=== PATIENT | female | born 2000 | race Caucasian/White ===

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

== ENCOUNTER 2019-01-09 02:11 | Emergency (ER) | payer OTHER ==
[2019-01-09] MEDS ORDERED: ONDANSETRON HCL 4 MG/2 ML VIAL ONE (02:44)
[2019-01-09] MEDS ORDERED: MORPHINE SULFATE 4 MG/1ML SYG ONE (02:45)
[2019-01-09 02:51] LABS: APPEARANCE,URINE Turbid (CLEAR); BILIRUBIN,URINE Negative (NEGATIVE); COLOR,URINE Yellow (YELLOW); GLUCOSE, URINE (UA) 500 mg/dL (NEGATIVE); KETONES,URINE Negative (NEGATIVE); LEUKOCYTE ESTERASE ,URINE Negative (NEGATIVE); NITRATE,URINE Negative (NEGATIVE); OCCULT BLOOD,URINE Negative (NEGATIVE); PH,URINE 8.5 (5.0-8.0); PROTEIN,URINE Negative (NEGATIVE)
[2019-01-09 02:52] LABS: EOSINOPHILS % (AUTO) 3.4 % (0.0-8.0); LYMPHOCYTES % (AUTO) 29.1 % (21.0-51.0); MEAN CORPUSCULAR HEMOGLOBIN 29.5 pg (27.0-33.0); MEAN CORPUSCULAR HGB CONC 33.4 g/dL (32.0-36.0); MEAN CORPUSCULAR VOLUME 88.3 fL (80-100); MONOCYTES % (AUTO) 8.3 % (3.0-13.0); NEUTROPHILS % (AUTO) 58.2 % (40.0-77.0); PLATELET COUNT (AUTO) 335 K/uL (130-400); RED BLOOD CELL COUNT(AUTO) 4.76 MIL/uL (4.00-5.50); RED CELL DISTRIBUTION WIDTH 13.3 % (11.0-15.5); WHITE BLOOD COUNT (AUTO) 11.8 K/uL (4.8-10.8)
[2019-01-09 02:52] LABS: HCG,QUAL RESULT NEGATIVE (NEGATIVE)
[2019-01-09 03:03] LABS: CREATININE 0.8 mg/dL (0.5-1.5)
[2019-01-09] MEDS ORDERED: METOCLOPRAMIDE 10 MG/2 ML VIAL ONE (03:03)
[2019-01-09 03:07] LABS: ALBUMIN 3.8 g/dL (3.5-5.0); BILIRUBIN,TOTAL 0.2 mg/dL (0.2-1.0); TOTAL PROTEIN, SERUM 7.5 g/dL (6.0-8.3)
[2019-01-09 03:10] LABS: AMPHET/METH SCREEN,URINE NEGATIVE (NEGATIVE); BARBITURATE SCREEN, URINE NEGATIVE (NEGATIVE); BENZODIAZEPINES SCREEN,URINE POSITIVE (NEGATIVE); CANNABINOID SCREEN,URINE POSITIVE (NEGATIVE); COCAINE SCREEN,URINE POSITIVE (NEGATIVE); OPIATE SCREEN,URINE NEGATIVE (NEGATIVE); PHENCYCLIDINE SCREEN,URINE NEGATIVE (NEGATIVE)
[2019-01-09 03:14] LABS: BACTERIA,URINE Few /HPF (None Seen); RBC,URINE 0-1 /HPF (0-1); WBC,URINE 0-1 /HPF (0-1)
[2019-01-09 03:15] LABS: AMORPHOUS SEDIMENT,UR Many /LPF (None Seen)
== END 2019-01-09 05:32 | disposition home or self-care (01) ==
LOC: EDH 02:11
DX: K80.20 Calculus of gallbladder without cholecystitis without obstruction (principal); E11.9 Type 2 diabetes mellitus without complications; Z88.8 Allergy status to other drugs, medicaments and biological substances; Z72.0 Tobacco use
CPT/HCPCS: 36415; 76705; 80053; 80305; 81001; 81025; 83690; 85025; 96374; 96375; 99284; J2270; J2405; J2765

== ENCOUNTER 2023-01-04 20:23 | Emergency (ER) | payer OTHER ==
[~2023-01-04] VITALS: Ht 165.1 cm; Wt 64.4 kg
[2023-01-04 21:08] LABS: BASOPHILS % (AUTO) 0.4 % (0.0-5.0); HEMATOCRIT 42.9 % (36-48); LYMPHOCYTES % (AUTO) 11.5 % (21.0-51.0); MEAN CORPUSCULAR HEMOGLOBIN 27.7 pg (27.0-33.0); MEAN CORPUSCULAR HGB CONC 32.6 g/dL (32.0-36.0); MONOCYTES % (AUTO) 6.5 % (3.0-13.0); NEUTROPHILS % (AUTO) 80.1 % (40.0-77.0); PLATELET COUNT (AUTO) 331 K/uL (130-400); RED BLOOD CELL COUNT(AUTO) 5.05 MIL/uL (4.00-5.50); RED CELL DISTRIBUTION WIDTH 14.2 % (11.0-15.5); WHITE BLOOD COUNT (AUTO) 16.7 K/uL (4.8-10.8)
[2023-01-04 21:26] LABS: ALBUMIN 3.9 g/dL (3.5-5.0); POTASSIUM 4.4 mmol/L (3.5-5.1); TOTAL PROTEIN, SERUM 7.3 g/dL (6.0-8.3)
[2023-01-04] MEDS ORDERED: LEVETIRACETAM 500 MG/5 ML SD VIAL IV SCH (21:30)
[2023-01-04] MEDS ORDERED: INSULIN HUMULIN R 100 UNIT/ML 3ML IV STA (21:51)
[2023-01-04] MEDS ORDERED: 0.9%NACL 1000ML 1,000 ML IV ONE (22:00)
[2023-01-04] MEDS ORDERED: ACETAMINOPHEN 500 MG TABLET ONE (22:04)
[2023-01-04] MEDS ORDERED: ACETAMINOPHEN 500 MG TABLET PO ONE (22:30)
[2023-01-04 22:40] LABS: APPEARANCE,URINE CLEAR (CLEAR); BILIRUBIN,URINE NEGATIVE (NEGATIVE); COLOR,URINE LIGHT-YELLOW (YELLOW); GLUCOSE, URINE (UA) >=1000 mg/dL (NEGATIVE); KETONES,URINE NEGATIVE (NEGATIVE); LEUKOCYTE ESTERASE ,URINE NEGATIVE Leu/uL (NEGATIVE); NITRATE,URINE NEGATIVE (NEGATIVE); PROTEIN,URINE NEGATIVE (NEGATIVE); UROBILINOGEN,URINE 0.2 mg/dL (0.2-1.0)
[2023-01-04 22:45] LABS: RBC,URINE 0-1 /HPF (0-1); SQUAMOUS EPITHELIAL CELL,UR FEW /HPF (0-2)
[2023-01-05] MEDS ORDERED: 0.9%NACL 1000ML 1,000 ML IV ONE (01:30)
[2023-01-05] MEDS ORDERED: LEVE-43 PO (02:40)
[2023-01-05] MEDS ORDERED: METF-444 PO (02:40)
[2023-01-05 02:56] VITALS: BP 122/64
== END 2023-01-05 03:06 | disposition home or self-care (01) ==
LOC: EDH 20:23
DX: G40.909 Epilepsy, unspecified, not intractable, without status epilepticus (principal); E11.9 Type 2 diabetes mellitus without complications; F41.9 Anxiety disorder, unspecified; F32.A Depression, unspecified
CPT/HCPCS: 99285; 96374; 70450; 96361 ×2; 96375; 80053; 84703; 85025; 87040 ×2; 82948; 83605 ×2; 82010; 81001; 36415 ×2; J1815; J1953; J7030 ×2

== ENCOUNTER 2024-06-26 10:40 | Emergency (ER) | payer OTHER ==
[~2024-06-26] VITALS: Ht 165.1 cm; Wt 113.4 kg
[~2024-06-26 10:40] MED LIST: LEVE-43 PO; METF-444 PO
[2024-06-26 11:22] LABS: BASOPHILS # (AUTO) 0.04 K/uL (0.00-0.20); BASOPHILS % (AUTO) 0.4 % (0.0-5.0); EOSINOPHILS % (AUTO) 2.1 % (0.0-8.0); HEMATOCRIT 33.5 % (36-48); IMMATURE GRANULOCYTE ABSOLUTE 0.03 K/uL (0-1); LYMPHOCYTES # (AUTO) 1.4 K/uL (1.0-4.8); LYMPHOCYTES % (AUTO) 14.6 % (21.0-51.0); MEAN CORPUSCULAR HEMOGLOBIN 21.4 pg (27.0-33.0); MEAN CORPUSCULAR HGB CONC 30.4 g/dL (32.0-36.0); MEAN CORPUSCULAR VOLUME 70.2 fL (79-99); MONOCYTES # (AUTO) 0.7 K/uL (0.1-1.0); NEUTROPHILS # (AUTO) 7.1 K/uL (1.8-7.7); NEUTROPHILS % (AUTO) 75.6 % (40.0-77.0); PLATELET COUNT (AUTO) 399 K/uL (130-400); RED BLOOD CELL COUNT(AUTO) 4.77 MIL/uL (4.00-5.50); WHITE BLOOD COUNT (AUTO) 9.4 K/uL (4.8-10.8)
[2024-06-26 11:40] LABS: CREATININE 0.8 mg/dL (0.5-1.0); POTASSIUM 4.3 mmol/L (3.5-5.1)
[2024-06-26 11:45] VITALS: BP 128/81; PULSE 74; RESP 18; TEMP 98.2
[2024-06-26 12:14] LABS: INR <= 0.93 (0.85-1.15); PROTHROMBIN TIME 10.1 SEC (9.6-11.6)
[2024-06-26 12:15] LABS: PARTIAL THROMBOPLASTIN TIME 21.3 SEC (26.3-35.5)
[2024-06-26] MEDS: leveTIRACEtam 500 MG/5 ML SD VIAL IV SCH (14:30)
[2024-06-26] MEDS: 0.9%NACL 1000ML 1,000 ML IV ONE ×2 (14:30→16:49)
[2024-06-26] MEDS ORDERED: METF-444 PO (15:57)
[2024-06-26] MEDS ORDERED: LEVE-43 PO (15:57)
== END 2024-06-26 14:47 | disposition home or self-care (01) ==
LOC: EDH 10:40
DX: G40.909 Epilepsy, unspecified, not intractable, without status epilepticus (principal); E11.9 Type 2 diabetes mellitus without complications; F32.A Depression, unspecified; F41.9 Anxiety disorder, unspecified; F17.200 Nicotine dependence, unspecified, uncomplicated; Z79.84 Long term (current) use of oral hypoglycemic drugs; Z88.8 Allergy status to other drugs, medicaments and biological substances
CPT/HCPCS: 99285; 96365; 70450; 96366; 82550; 80048; 84702; 85025; 85610; 85730; 83605 ×2; 36415; J1953; J7030 ×2

== ENCOUNTER 2024-10-08 18:52 | Emergency (ER) | payer OTHER ==
[~2024-10-08] VITALS: Ht 167.6 cm; Wt 93.0 kg
--- NOTE | 2024-10-08 19:44 | ERN ---
ED Note History of Present Illness Stated Complaint: SEIZURE Chief Complaint: Seizure Time Seen by MD: 19:17 Dictation: This is a 24-year-old female who was brought in from the correctional facility with seizure episode. When EMS transported her she experienced another seizure.. EMS did not report the details in terms of the duration and patient recovered very quickly. At presentation her temperature is 97.9 pulse 116 respirations 20 blood pressure 124/76 pulse oximetry 99% on room air Her chronic medical problems include anxiety and depression, diabetes mellitus and history of seizure disorder (which the patient stated that she attempted a suicide when she was very young and has had seizures since then) Allergies: Coded Allergies: rizatriptan (Unverified Allergy, Unknown, 01/04/23) Home Meds Active Scripts Levetiracetam (Keppra) 500 Mg Tablet, 1 TAB PO BID for 30 Days, #60 TAB 0 Refills Prov:KARON HASSAN MD 10/08/24 Metformin HCl (Metformin HCl) 500 Mg Tablet, 500 MG PO BID for 30 Days, #60 TAB Prov:FÉLIX WILLAMS MD 06/26/24 Levetiracetam (Keppra) 500 Mg Tablet, 500 MG PO BID for 30 Days, #60 TAB 0 Refills Prov:FÉLIX WILLAMS MD 06/26/24 Metformin HCl (Metformin HCl) 500 Mg Tablet, 500 MG PO BID for 10 Days, #60 TAB Prov:KOBI BOND MD 01/05/23 Levetiracetam (Keppra) 500 Mg Tablet, 500 MG PO BID for 30 Days, #60 TAB 0 Refills Prov:KOBI BOND MD 01/05/23 Past Medical History Past Medical History: Anxiety, Depression, Diabetes-Type II, Seizure Surgical History: None PSYCH History: anxiety, depression Social History: Smokers, Drugs, Lives with family LMP: Aug 02, 2024 RN Note Reviewed/Agreed w/PFSH: Yes Review of System Dictation Constitutional: Negative for fever,chills, and weight loss Eyes: Negative for injury, pain,redness, and discharge ENT: Negative for injury,pain or swelling Cardiovascular: Negative for chest pain, palpitations, and edema Respiratory: Negative for shortness of breath, cough, and wheezing, Abdomen/GI: Negative for abdominal pain, nausea, vomiting, diarrhea, and constipation Back: Negative for injury and pain : Negative for injury, bleeding and discharge MS/Extremity: Negative for injury and deformity Skin: Negative for rash, and discoloration Neuro: Negative for headache, weakness, numbness, tingling, and positive for seizure Psych: Negative for suicide ideation, homicidal ideation, and hallucinations Initial Vital Sign VS Vital Signs Date Time Temp Pulse Resp B/P (MAP) Pulse Ox O2 Delivery O2 Flow Rate FiO2 10/08/24 18:53 97.9 116 20 124/76 99 Room Air 10/08/24 21:13 0 21 Physical Exam Dictation General: awake, alert, NAD Head/Face: Normocephalic, atraumatic injury to the lower lip and tip of the tongue from biting due to seizure Eyes: PERRL, EOMI, vision at baseline ENT: oral cavity clear, TMs clear, no signs of infection Neck: Trachea midline, supple, no nuchal rigidity Cardiovascular: RRR, normal S1/S2, No MRGs, no JVD Respiratory: CTAB, no respiratory distress, No rales or wheezes Abdomen: Soft, non-tender, non-distended, normal bowel sounds, no guarding or rebound. Skin: Warm, dry, normal turgor, no rash MS/Extremity: Pulses equal, no cyanosis, neurovascular intact, FROM Neuro: COAx4, GCS 15, strength 5/5, CN 2-12 intact, normal cerebellar exam, normal gait, Psych: Normal behavior, mood, and affect normal Extremities-trace edema without any palpable cords, Homans sign is negative Results (Laboratory/Radiology) Laboratory/Radiology Laboratory Tests Test 10/08/24 20:45 White Blood Count 14.0 K/uL (4.8-10.8) H Red Blood Count 6.07 MIL/uL (4.00-5.50) H Hemoglobin 12.8 g/dL (12.0-16.0) Hematocrit 42.7 % (36-48) Mean Corpuscular Volume 70.3 fL (79-99) L Mean Corpuscular Hemoglobin 21.1 pg (27.0-33.0) L Mean Corpuscular Hemoglobin Concent 30.0 g/dL (32.0-36.0) L Red Cell Distribution Width 17.7 % (11.0-15.5) H Platelet Count 462 K/uL (130-400) H Mean Platelet Volume 9.2 fL (7.5-10.5) Immature Granulocyte % (Auto) 0.4 % (0-1) Neutrophils (%) (Auto) 81.8 % (40.0-77.0) H Lymphocytes (%) (Auto) 12.3 % (21.0-51.0) L Monocytes (%) (Auto) 4.9 % (3.0-13.0) Eosinophils (%) (Auto) 0.2 % (0.0-8.0) Basophils (%) (Auto) 0.4 % (0.0-5.0) Neutrophils # (Auto) 11.4 K/uL (1.8-7.7) H Lymphocytes # (Auto) 1.7 K/uL (1.0-4.8) Monocytes # (Auto) 0.7 K/uL (0.1-1.0) Eosinophils # (Auto) 0.03 K/uL (0.00-0.70) Basophils # (Auto) 0.05 K/uL (0.00-0.20) Absolute Immature Granulocyte (auto 0.06 K/uL (0-1) Nucleated Red Blood Cells 0.0 % (0.0-0.19) Red Blood Cell Morphology See comments Sodium Level 134 mmol/L (136-145) L Potassium Level 4.3 mmol/L (3.5-5.1) Chloride Level 99 mmol/L (101-111) L Carbon Dioxide Level 25 mmol/L (21-32) Blood Urea Nitrogen 11 mg/dL (7-18) Creatinine 0.7 mg/dL (0.5-1.0) Glomerular Filtration Rate Calc 122 mL/min (>90) Random Glucose 265 mg/dL (70-105) H Total Calcium 9.2 mg/dL (8.5-10.1) Total Bilirubin 0.7 mg/dL (0.2-1.0) Direct Bilirubin 0.1 mg/dL (0.0-0.3) Aspartate Amino Transf (AST/SGOT) 18 U/L (10-37) Alanine Aminotransferase (ALT/SGPT) 21 U/L (12-78) Alkaline Phosphatase 67 U/L (50-136) Total Protein 7.7 g/dL (6.0-8.3) Albumin 3.9 g/dL (3.5-5.0) Serum Test, Qualitative NEGATIVE (NEGATIVE) Labs Reviewed?: Yes CT Scan Comment: PATIENT: APOLONIA CARDENAS MR#: [id number] : 2000 SEX: F AGE: 23 LOCATION: [facility] ORDER [id number] STATUS: REG ER REPORT#: [id number] SERVICE 1345 REASON: Seizure ORDERING PHYSICIAN: FÉLIX WILLAMS MD PROCEDURE: HEAD WO - CT HEAD/BRAIN W/O CONTRAST CT HEAD/BRAIN W/O CONTRAST HISTORY: Seizures COMPARISON: None TECHNIQUE: Multiple sequential axial images of the head were obtained from the base of the skull through vertex. Patient was not given contrast through intravenous route. FINDINGS: The ventricles and extraventricular CSF spaces are nondilated for patient's age. There is no midline shift, mass effect or herniation. No acute intracranial bleed is seen. Visualized portion of the paranasal sinuses are grossly within normal limits. IMPRESSION: 1. No acute intracranial bleed is seen. CT was performed with one or more following dose reduction techniques: automated exposure control, adjustment of the mA and kv according to patient's size, or use of a iterative reconstruction technique. DICTATED BY: SHRUTHI VEGAS MD DATE: 06/26/241453 ELECTRONICALLY SIGNED BY: SHRUTHI VEGAS MD DATE: 06/26/241456 ED Course ED Course Orders Procedure Category Date Status Time Cbc With Differential LAB 10/08/24 Complete 19:24 Basic Metabolic Panel LAB 10/08/24 Complete 19:24 Ct Head/Brain W/O CT 10/08/24 Resulted Contrast 19:28 Testing, LAB 10/08/24 Complete Serum Hcg 20:10 Hepatic Function Panel LAB 10/08/24 Complete 19:24 Levetiracetam 500 PHA 10/08/24 In Process Mg/5 Ml Sd V (Keppra 5 21:00 Insulin Regular, PHA 10/08/24 Complete Human 3ml (Humulin R 22:00 Current Medications Medications (Trade) Dose Ordered Sig/Rosmery Route PRN Reason Start Time Stop Time Status Last Admin Dose Admin Insulin Human Regular (humuLIN R 100 UNIT/ML 3ML) 5 unit ONCE ONCE SQ 10/08/24 22:00 1/7/25 22:01 DC 10/08/24 21:49 Levetiracetam (kepPRA 500 MG/5 ML SD VIAL) 1,000 mg ONCE IV 10/08/24 21:00 11/07/24 20:59 10/08/24 21:08 Vital Signs Date Time Temp Pulse Resp B/P (MAP) Pulse Ox O2 Delivery O2 Flow Rate FiO2 10/08/24 21:13 98.4 104 18 126/74 98 Room Air* 0 21 10/08/24 18:53 97.9 116 20 124/76 99 Room Air We will perform diagnostic labs, advanced imaging and administer medications according to the patient's complaint. Once the results are available, will review and personally interpreted the labs to rule out any acute life-threatenin g emergency the trach require immediate intervention and treatment. I will then re-evaluate the patient after treatment and diagnostic exams have return to determine whether the patient requires any further testing, can safely be discharged home or need further admission to hospital for additional treatment and evaluation. 8:59 p.m.-CT scan of the head without contrast did not reveal any acute intracranial abnormalities. Medical Decision Making MDM MDM: Differential diagnosis: Seizure secondary to not being on the medications for the past 3 4 days, dehydration, infection, poor sleep hygiene Rationale: Tests considered and ordered secondary to shared decision making include: Previous outside records reviewed: Old ER visits. Risk of complication and/or morbidity or mortality of patient management: None Medications-Per medication reconciliation Need for hospitalization: Patient does not meet criteria for hospitalization. Need for emergency major/minor surgery: No There are no social concerns with this patient. Prescription drug management Prescriptions will include symptomatic care Patient's prior external medical records from other ER visits were reviewed by me as indicated. Prior testing and results from previous visits were reviewed. Prior tests were taken into account with medical decision making and resource utilization, independent historian/historians were used to obtain complete medical history. I independently interpreted the test that were performed, results were reviewed by me and considered findings on radiology if ordered. Medical management and examination interpretation discussions were had by me with other qualified healthcare professionals as indicated for the patient's care. Problem List Problem List: (1) Seizure disorder (2) Poor compliance (3) Diabetes (4) Poor compliance (5) Seizure DX & DISP Disposition: Discharge Departure Impression: Primary Impression: Seizure Additional Impressions: Poor compliance, Diabetes, Seizure disorder Condition: Stable Scripts Levetiracetam (Keppra) 500 Mg Tablet 1 TAB PO BID for 30 Days, #60 TAB 0 Refills Prov: KARON HASSAN MD 10/08/24 Additional Instructions: Patient has been informed of all the diagnostic tests and the imaging conducted during the today's visit to the emergency room and has verbalized understanding of the results I have personally reviewed and interpreted all diagnostic exams performed here in the ER today as well as the vital signs documented by the nursing staff. The patient is now being discharged to correctional facility and should follow up with the primary care physician or the specialist as directed by the ER staff. Patient was instructed to be compliant with her antiepileptics. Referrals: SELF,REFERRAL (PCP) KARON HASSAN MD Oct 08, 2024 19:44
[2024-10-08 20:57] LABS: BASOPHILS # (AUTO) 0.05 K/uL (0.00-0.20); BASOPHILS % (AUTO) 0.4 % (0.0-5.0); EOSINOPHILS # (AUTO) 0.03 K/uL (0.00-0.70); EOSINOPHILS % (AUTO) 0.2 % (0.0-8.0); HEMATOCRIT 42.7 % (36-48); IMMATURE GRANULOCYTE ABSOLUTE 0.06 K/uL (0-1); LYMPHOCYTES # (AUTO) 1.7 K/uL (1.0-4.8); LYMPHOCYTES % (AUTO) 12.3 % (21.0-51.0); MEAN CORPUSCULAR HEMOGLOBIN 21.1 pg (27.0-33.0); MEAN CORPUSCULAR VOLUME 70.3 fL (79-99); MONOCYTES # (AUTO) 0.7 K/uL (0.1-1.0); MONOCYTES % (AUTO) 4.9 % (3.0-13.0); NEUTROPHILS # (AUTO) 11.4 K/uL (1.8-7.7); NEUTROPHILS % (AUTO) 81.8 % (40.0-77.0); PLATELET COUNT (AUTO) 462 K/uL (130-400); RED BLOOD CELL COUNT(AUTO) 6.07 MIL/uL (4.00-5.50); RED CELL DISTRIBUTION WIDTH 17.7 % (11.0-15.5)
[2024-10-08] MEDS ORDERED: LEVE-43 PO (21:04)
[2024-10-08] MEDS: leveTIRACEtam 500 MG/5 ML SD VIAL IV SCH (21:08)
[2024-10-08 21:13] VITALS: TEMP 98.5
[2024-10-08 21:16] LABS: ALBUMIN 3.9 g/dL (3.5-5.0); BILIRUBIN,DIRECT 0.1 mg/dL (0.0-0.3); BILIRUBIN,TOTAL 0.7 mg/dL (0.2-1.0); CREATININE 0.7 mg/dL (0.5-1.0); POTASSIUM 4.3 mmol/L (3.5-5.1); TOTAL PROTEIN, SERUM 7.7 g/dL (6.0-8.3)
[2024-10-08] MEDS: INSULIN humuLIN R 100 UNIT/ML 3ML SQ ONE (21:49)
--- NOTE | 2024-10-08 21:55 | HMCIMG ---
CT HEAD WITHOUT CONTRAST INDICATION: Seizures TECHNIQUE: Noncontrast axial helical CT images from the vertex through the skull base using 5 mm slice thickness without contrast material. CT was performed with one or more of the following dose reduction techniques: Automated exposure control, adjustment of the mA and/or kV according to patient size, or use of iterative reconstruction technique. COMPARISON: None FINDINGS: The cerebral and cerebellar hemispheres are age-appropriate in appearance. No evidence for abnormal extra-axial fluid collections or masses. The ventricles and sulci are normal in size and configuration. No evidence for intracranial parenchymal, epidural, or subdural hemorrhage, mass effect or midline shift. The nuger-white matter differentiation is well preserved. No secondary evidence to suggest acute ischemia. The brainstem and cerebellum appear normal. The visualized orbits appear unremarkable. The visible paranasal sinuses and mastoid air cells are clear. The calvarium appears normal. IMPRESSION: No acute intracranial process identified.
[2024-10-08 23:32] VITALS: BP 118/68; PULSE 99; RESP 20; O2SAT 97
== END 2024-10-08 23:36 ==
LOC: EDH 18:52
DX: G40.909 Epilepsy, unspecified, not intractable, without status epilepticus (principal); E11.9 Type 2 diabetes mellitus without complications; F41.9 Anxiety disorder, unspecified; F17.200 Nicotine dependence, unspecified, uncomplicated; F32.A Depression, unspecified; Z79.84 Long term (current) use of oral hypoglycemic drugs; Z79.899 Other long term (current) drug therapy
CPT/HCPCS: 99285; 96374; 70450; 80076; 80048; 84703; 85025; 82948; 36415; 96372; J1815; J1953